=== PATIENT | female | born 1980 | race Caucasian/White ===

== ENCOUNTER 2016-12-31 14:29 | Emergency (ER) | payer MEDICARE, OTHER ==
[~2016-12-31] VITALS: Ht 172.7 cm; Wt 110.0 kg
[~2016-12-31 14:29] MED LIST: ATIV2INJ2 IM; BENZ1TAB PO; CLON.5 PO; DIPH50IN2 IM; HALO5P IM; IBUP800T23 PO; LITH300 PO; PALI156P IM; TRAZ150T75 PO; VITA400C70 PO
--- NOTE | 2016-12-31 14:51 | PD ---
HPI . confusion Chief Complaint: Psychiatric Symptoms Time Seen by Provider: 14:50 Travel History International Travel<30 days: No Contact w/Intl Traveler<30days: No Traveled to known affect area: No History of Present Illness HPI 36-year-old female with past medical history of schizophrenia per [facility]. She was apparently seen by a psychiatrist while there and noted to have incoherent speech, delusional behaviors and visual hallucinations. She had very disorganized thought process. Upon questioning patient tells me that she hears about 6 people talking to her in her head. She tells me that she is . She cannot focus and is constantly gazing off talking to people I cannot see. At the time of examination patient denies any fever, chills, chest pain, shortness of breath, nausea, vomiting or abdominal pain. She is a very unreliable historian. 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 PFSH Past Medical History Depression: Yes Cancer: No Cardiovascular Problems: No Diminished Hearing: No Endocrine: No Gastrointestinal Disorders: No Genitourinary: No Immune Disorder: No Implanted Vascular Access Dvce: No Musculoskeletal: Yes (SURGICAL REPAIR OF R LEG AND BILAT ANKLES) Neurologic: No Psychiatric: Yes Reproductive: No Respiratory: No Schizophrenia: Yes Past Surgical History Abdominal Surgery: No Cardiac Surgery: No Section: Yes Ear Surgery: No Endocrine Surgery: No Eye Surgery: No Genitourinary Surgery: No Gynecologic Surgery: Yes () Neurologic Surgery: No Oral Surgery: No Thoracic Surgery: No Other Surgery: Yes Social History Alcohol Use: Yes (on occasion) Tobacco Use: Yes (1/2 ppd) Substance Use: No (DENIES) Allergies-Medications (Allergen,Severity, Reaction): Coded Allergies: Penicillin (Verified Allergy, Severe, 12/31/16) Reported Meds & Prescriptions Reported Meds & Active Scripts Active Reported Ativan (Lorazepam) 2 Mg/Ml Inj 2 Mg IM BID PRN GIVEN WITH HALDOL 5MG AND BENADRYL 50MG Benadryl (Diphenhydramine HCl) 50 Mg/Ml Inj 50 Mg IM BID PRN GIVEN WITH HALDOL 5MG AND ATIVAN 2MG Haldol (Haloperidol Lactate) 5 Mg/Ml Inj 5 Mg IM BID PRN GIVEN WITH BENADRYL 50MG AND ATIVAN 2MG Ibuprofen 800 Mg Tab 800 Mg PO Q6H PRN Klonopin (Clonazepam) 0.5 Mg Tab 0.25 Mg PO DAILY 1 Days DUE TO BE GIVEN AT 9AM ON 05/14/2014 Klonopin (Clonazepam) 0.5 Mg Tab 0.25 Mg PO BID 2 Days Vitamin E-400 (Vitamin E) 400 Unit Cap 400 Unit PO DAILY@0600 7 Days Cogentin (Benztropine Mesylate) 1 Mg Tab 1 Mg PO BID Potter Carbonate Er (Potter Carbonate) 300 Mg Tab 600 Mg PO Q12 Trazodone Hcl (Trazodone HCl) 150 Mg Tab 150 Mg PO HS Invega Sustenna (Paliperidone Palmitate) 156 Mg/Ml Inj 156 Mg IM Q28D *FOR INTRAMUSCULAR USE ONLY* Review of Systems General / Constitutional: No: Fever Eyes: No: Visual changes HENT: No: Headaches Cardiovascular: No: Chest Pain or Discomfort Respiratory: No: Shortness of Breath Gastrointestinal: No: Abdominal Pain Genitourinary: No: Dysuria Musculoskeletal: No: Pain Skin: No Rash Neurologic: No: Weakness Psychiatric: No: Depression Endocrine: No: Polydipsia Hematologic/Lymphatic: No: Easy Bruising Physical Exam Narrative GENERAL: AAO x 1, no acute distress, Well-nourished, well-developed patient. SKIN: Warm and dry. No visible rashes or bruising. HEAD: Normocephalic and atraumatic. EYES: No scleral icterus. No injection or drainage. EOM intact, PERRLA ENT: No nasal drainage noted. Mucous membranes pink. Airway patent. NECK: Supple, trachea midline. No JVD. CARDIOVASCULAR: Regular rate and rhythm without murmurs, gallops, or rubs. RESPIRATORY: Breath sounds equal bilaterally. No accessory muscle use. No rhonchi or rales. GASTROINTESTINAL: Abdomen soft, non-tender, nondistended. EXTREMITIES: No cyanosis or edema. BACK: Nontender without obvious deformity. No CVA tenderness. PSYCH: AAO x 1, confused and flat affect Data Data Last Documented VS Vital Signs Date Time Temp Pulse Resp B/P Pulse Ox O2 Delivery O2 Flow Rate FiO2 12/31/16 14:56 97.8 12/31/16 14:55 81 20 113/57 99 Orders Complete Blood Count With Diff (12/31/16 15:04) Comprehensive Metabolic Panel (12/31/16 15:04) Ed Urine Pregnancytest Poc (12/31/16 15:04) Psych Screen (12/31/16 15:04) Drug Screen, Random Urine (12/31/16 15:04) Urinalysis - C+S If Indicated (12/31/16 15:04) Ct Brain W/O Iv Contrast(Rout) (12/31/16 ) Labs Laboratory Tests Test 12/31/16 12/31/16 15:30 16:15 White Blood Count 7.5 TH/MM3 Red Blood Count 3.98 MIL/MM3 Hemoglobin 12.1 GM/DL Hematocrit 35.2 % Mean Corpuscular Volume 88.4 FL Mean Corpuscular Hemoglobin 30.4 PG Mean Corpuscular Hemoglobin 34.3 % Concent Red Cell Distribution Width 13.8 % Platelet Count 265 TH/MM3 Mean Platelet Volume 9.0 FL Neutrophils (%) (Auto) 60.0 % Lymphocytes (%) (Auto) 27.7 % Monocytes (%) (Auto) 9.2 % Eosinophils (%) (Auto) 2.7 % Basophils (%) (Auto) 0.4 % Neutrophils # (Auto) 4.5 TH/MM3 Lymphocytes # (Auto) 2.1 TH/MM3 Monocytes # (Auto) 0.7 TH/MM3 Eosinophils # (Auto) 0.2 TH/MM3 Basophils # (Auto) 0.0 TH/MM3 CBC Comment DIFF FINAL Differential Comment Sodium Level 139 MEQ/L Potassium Level 3.6 MEQ/L Chloride Level 102 MEQ/L Carbon Dioxide Level 26.0 MEQ/L Anion Gap 11 MEQ/L Blood Urea Nitrogen 10 MG/DL Creatinine 0.67 MG/DL Estimat Glomerular Filtration 99 ML/MIN Rate Random Glucose 77 MG/DL Calcium Level 9.4 MG/DL Total Bilirubin 0.5 MG/DL Aspartate Amino Transf 37 U/L (AST/SGOT) Alanine Aminotransferase 44 U/L (ALT/SGPT) Alkaline Phosphatase 78 U/L Total Protein 7.4 GM/DL Albumin 3.7 GM/DL Urine Color YELLOW Urine Turbidity HAZY Urine pH 5.0 Urine Specific [place] 1.009 Urine Protein NEG mg/dL Urine Glucose (UA) NEG mg/dL Urine Ketones 10 mg/dL Urine Occult Blood NEG Urine Nitrite NEG Urine Bilirubin NEG Urine Urobilinogen LESS THAN 2.0 MG/DL Urine Leukocyte Esterase NEG Urine WBC 1 /hpf Urine Squamous Epithelial <1 /hpf Cells Urine Amorphous Sediment RARE Urine Mucus FEW /lpf Microscopic Urinalysis Comment CULT NOT INDICATED Urine Opiates Screen NEG Urine Barbiturates Screen NEG Urine Amphetamines Screen NEG Urine Benzodiazepines Screen POS Urine Cocaine Screen NEG Urine Cannabinoids Screen NEG MDM Medical Decision Making Medical Screen Exam Complete: Yes Emergency Medical Condition: Yes Medical Record Reviewed: Yes Differential Diagnosis acute psychosis, less likely Warneke's encephalopathy, less likely brain lesion Narrative Course 36-year-old female with past medical history of schizophrenia per [facility]. She was apparently seen by a psychiatrist while there and noted to have incoherent speech, delusional behaviors and visual hallucinations. She had very disorganized thought process. Upon questioning patient tells me that she hears about 6 people talking to her in her head. She tells me that she is . She cannot focus and is constantly gazing off talking to people I cannot see. At the time of examination patient denies any fever, chills, chest pain, shortness of breath, nausea, vomiting or abdominal pain. She is a very unreliable historian. 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 Patient seen and examined. Case discussed with Dr. Grullon. Labs, UA and CT of the brain ordered. If normal, we will proceed with medical clearance and patient will report to psychiatry services. CT of the brain normal. CBC and CMP unremarkable. Tox screen positive for benzo. UA no acute infection. Medically cleared for psych workup/treatment. Diagnosis Primary Impression: Visual hallucination Additional Impression: Hx of schizophrenia Condition: Stable Marissa Vo Dec 31, 2016 14:51
[2016-12-31 14:55] VITALS: BP 113/57; PULSE 81; RESP 20; O2SAT 99
[2016-12-31 14:56] VITALS: TEMP 97.8
[2016-12-31 16:13] LABS: AUTOMATED NEUTROPHIL # 4.5 TH/MM3 (1.8-7.7); BASOPHIL % 0.4 % (0.0-2.0); EOSINOPHIL # 0.2 TH/MM3 (0-0.4); EOSINOPHIL % 2.7 % (0.0-4.0); HEMATOCRIT 35.2 % (35.0-46.0); HEMO FLAGS DIFF FINAL; LYMPH % 27.7 % (9.0-44.0); LYMPHOCYTE # 2.1 TH/MM3 (1.0-4.8); MEAN CELL VOLUME 88.4 FL (80.0-100.0); MEAN CORPUSCULAR HEMOGLOBIN 30.4 PG (27.0-34.0); MEAN CORPUSCULAR HGB CONC 34.3 % (32.0-36.0); MONO % 9.2 % (0.0-8.0); PLATELET COUNT 265 TH/MM3 (150-450); RED BLOOD COUNT 3.98 MIL/MM3 (4.00-5.30); RED CELL DISTRIBUTION WIDTH 13.8 % (11.6-17.2); WHITE BLOOD COUNT 7.5 TH/MM3 (4.0-11.0)
--- NOTE | 2016-12-31 16:33 | RADRPT ---
EXAM DATE/TIME: 12/31/2016 16:25 [facility] COMPARISON: No previous studies available for comparison. INDICATIONS : Altered mental status. RADIATION DOSE: 35.73 CTDIvol (mGy) MEDICAL HISTORY : None SURGICAL HISTORY : None. ENCOUNTER: Initial ACUITY: 1 day PAIN SCALE: 0/10 LOCATION: cranial TECHNIQUE: Multiple contiguous axial images were obtained of the head. Using automated exposure control and adj ustment of the mA and/or kV according to patient size, radiation dose was kept as low as reasonably a chievable to obtain optimal diagnostic quality images. FINDINGS: CEREBRUM: The ventricles are normal for age. No evidence of midline shift, mass lesion, hemorrhage or acute in farction. No extra-axial fluid collections are seen. POSTERIOR FOSSA: The cerebellum and brainstem are intact. The 4th ventricle is midline. The cerebellopontine angle i s unremarkable. EXTRACRANIAL: The visualized portion of the orbits is intact. SKULL: The calvaria is intact. No evidence of skull fracture. CONCLUSION: Normal examination. Sourav Ornelas Jr., MD on December 31, 2016 at 16:31 Board Certified Radiologist. This report was verified electronically.
[2016-12-31 16:36] LABS: ALT (GPT) 44 U/L (10-53); ANION GAP 11 MEQ/L (5-15); BLOOD UREA NITROGEN 10 MG/DL (7-18); CHLORIDE 102 MEQ/L (98-107); GLOMERULAR FILTRATION RATE 99 ML/MIN (>89); POTASSIUM 3.6 MEQ/L (3.5-5.1); SODIUM (NA) 139 MEQ/L (136-145)
[2016-12-31 16:38] LABS: ALKALINE PHOSPHATASE 78 U/L (45-117); AST (GOT) 37 U/L (15-37); TOTAL BILIRUBIN ADULT 0.5 MG/DL (0.2-1.0)
[2016-12-31 16:52] LABS: BLOOD, URINE NEG (NEG); COMMENT (UR) CULT NOT INDICATED; CULTURE IF INDICATED CULT NOT INDICATED; GLUCOSE,URINE NEG (NEG); KETONE, URINE 10 mg/dL (NEG); MUCUS URINE FEW /lpf (OCC); NITRITE,URINE NEG (NEG); SQUAMOUS EPITHELIAL CELL URINE <1 /hpf (0-5); URINE COLOR YELLOW (YELLW/STRAW)
[2016-12-31 16:53] LABS: AMPHETAMINE, URINE NEG (NEG); BARBITURATES, URINE NEG (NEG); COCAINE, URINE NEG (NEG)
[2016-12-31] MEDS ORDERED: DIAZ5 PO (18:04)
[2016-12-31] MEDS ORDERED: THIA100T PO (18:04)
[2016-12-31 20:18] VITALS: BP 133/61; PULSE 83; RESP 18; TEMP 98.2; O2SAT 97
[2016-12-31] MEDS ORDERED: LORazepam 2 MG/ML VIAL IV PUSH ONE (22:00)
[2016-12-31] MEDS ORDERED: OLANZapine IM 10 MG VIAL IM ONE (22:00)
[2016-12-31] MEDS ORDERED: diphenhydrAMINE HCL 50 MG/ML VIAL IV PUSH ONE (22:00)
[2016-12-31 22:10] VITALS: BP 156/69; PULSE 82; RESP 18; TEMP 97.5; O2SAT 100
[2017-01-01 06:42] VITALS: BP 175/77; PULSE 78; RESP 18; O2SAT 98
[2017-01-01 08:55] VITALS: BP 121/64; PULSE 89; RESP 18; O2SAT 97
--- NOTE | 2017-01-01 09:14 | PD ---
History of Present Illness Chief Complaint: Psychiatric Symptoms Time Seen by Provider: 09:00 Travel History International Travel<30 Days: No Contact w/Intl Traveler<30days: No Known affected area: No Legal Status Legal Status: Lam Act Lam Act Signed By: SUDHIR JENKINS LCSW, MA; GALINDO JACOBSEN, [address] [place] [address] History of Present Illness: History of Present Illness HPI 36-year-old female with past medical history of schizophrenia per records here [facility]. As per documentation the patient was seen at the [facility] by Dr. Feng who [place] [facility] [place] and [place]. The patient was noted to have incoherent speech, delusional behaviors and visual hallucinations. She had very disorganized thought process. Here in the ED " Upon questioning patient tells me that she hears about 6 people talking to her in her head. She tells me that she is . She cannot focus and is constantly gazing off talking to people I cannot see. She is a very unreliable historian. 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 As per nursing report she has been awake most of the night walking around and talking to herself. She received ETO and slept for approximately 2 hours. This morning she is awake, alert. She does not engage. When I ask her name she begins to giggle and puts her fingers in her mouth and makes some faces. She then proceeds to talk to herself and begins to organize her sheets. I am unable to obtain any other clinical information at this time. I will order another ETO at this time due to continued behaviors indicating acute psychosis. I attempted to contact ELIEL listed on EMR Myriam at [phone]. [place] [facility] [place] As per EMR this patient was [place] [facility] [place] and treated for schizophrenia. PFSH Past Medical History Depression: Yes Cancer: No Cardiovascular Problems: No Diminished Hearing: No Endocrine: No Gastrointestinal Disorders: No Genitourinary: No Immune Disorder: No Implanted Vascular Access Dvce: No Musculoskeletal: Yes (SURGICAL REPAIR OF R LEG AND BILAT ANKLES) Neurologic: No Psychiatric: Yes Reproductive: No Respiratory: No Immunizations Current: No Schizophrenia: Yes Tetanus Vaccination: Unknown Influenza Vaccination: No ?: Not Past Surgical History Abdominal Surgery: No Cardiac Surgery: No Section: Yes Ear Surgery: No Endocrine Surgery: No Eye Surgery: No Genitourinary Surgery: No Gynecologic Surgery: Yes () Neurologic Surgery: No Oral Surgery: No Thoracic Surgery: No Other Surgery: Yes Psychiatric History Psychiatric History Hx Psychiatric Treatment: HX OF TREATMENT FOR SCHIZOPHRENIA AND DEPRESSION [place] of [place]: [place] [place] [facility] Social History Hx Alcohol Use: Yes (on occasion) Hx Tobacco Use: No (quit a year ago ) Hx Substance Use: No (unknown) Hx of Substance Use Treatment: No Family Psychiatric History Unknown Allergies-Medications (Allergen,Severity, Reaction): Coded Allergies: Penicillin (Verified Allergy, Severe, 12/31/16) Reported Meds & Prescriptions Reported Meds & Active Scripts Active Reported Valium (Diazepam) 5 Mg Tab 5 Mg PO DAILY Thiamine (Thiamine HCl) 100 Mg Tab 100 Mg PO DAILY Review of Systems ROS Limitations: Clinical Condition Exam Exam Limitations: Clinical Condition Alert: Yes Mood: Other (restless) Affect: Labile, Other (innapropriatte) Eye Contact: None Memory Intact: Comment (unable to test) Hallucinations: Auditory (observed talking to other people in her room) Delusions: No Suicidal: Ideation (unamble to assess) Homicidal: Ideation (unable to determine) Insight/Judgement Fair. Fair [facility] Medical Decision Making Medical Record Reviewed: Yes Assessment/Plan 36 year old female who is on A BA for psychosis . Patient requires inpatient treatment at this time . Due to no bed availability [place] [facility] at this time the patient will be staffed with area facilities for treatment. Orders Complete Blood Count With Diff (12/31/16 15:04) Comprehensive Metabolic Panel (12/31/16 15:04) Ed Urine Pregnancytest Poc (12/31/16 15:04) Psych Screen (12/31/16 15:04) Drug Screen, Random Urine (12/31/16 15:04) Urinalysis - C+S If Indicated (12/31/16 15:04) Ct Brain W/O Iv Contrast(Rout) (12/31/16 ) Olanzapine Inj (Zyprexa Inj) (12/31/16 22:00) Diphenhydramine Inj (Benadryl Inj) (12/31/16 22:00) Lorazepam Inj (Ativan Inj) (12/31/16 22:00) Diet Regular Basic (01/01/17 Breakfast) Diet Regular Basic (01/01/17 Lunch) Olanzapine Inj (Zyprexa Inj) (01/01/17 09:15) Diphenhydramine Inj (Benadryl Inj) (01/01/17 09:15) Results Vital Signs Date Time Temp Pulse Resp B/P Pulse Ox O2 Delivery O2 Flow Rate FiO2 01/01/17 08:55 89 18 121/64 97 Room Air 01/01/17 06:42 78 18 175/77 98 12/31/16 22:10 97.5 82 18 156/69 100 Room Air 12/31/16 20:18 98.2 83 18 133/61 97 Room Air 12/31/16 14:56 97.8 12/31/16 14:55 81 20 113/57 99 Laboratory Tests Test 12/31/16 12/31/16 15:30 16:15 White Blood Count 7.5 Red Blood Count 3.98 Hemoglobin 12.1 Hematocrit 35.2 Mean Corpuscular Volume 88.4 Mean Corpuscular Hemoglobin 30.4 Mean Corpuscular Hemoglobin 34.3 Concent Red Cell Distribution Width 13.8 Platelet Count 265 Mean Platelet Volume 9.0 Neutrophils (%) (Auto) 60.0 Lymphocytes (%) (Auto) 27.7 Monocytes (%) (Auto) 9.2 Eosinophils (%) (Auto) 2.7 Basophils (%) (Auto) 0.4 Neutrophils # (Auto) 4.5 Lymphocytes # (Auto) 2.1 Monocytes # (Auto) 0.7 Eosinophils # (Auto) 0.2 Basophils # (Auto) 0.0 CBC Comment DIFF FINAL Differential Comment Sodium Level 139 Potassium Level 3.6 Chloride Level 102 Carbon Dioxide Level 26.0 Anion Gap 11 Blood Urea Nitrogen 10 Creatinine 0.67 Estimat Glomerular Filtration 99 Rate Random Glucose 77 Calcium Level 9.4 Total Bilirubin 0.5 Aspartate Amino Transf 37 (AST/SGOT) Alanine Aminotransferase 44 (ALT/SGPT) Alkaline Phosphatase 78 Total Protein 7.4 Albumin 3.7 Urine Color YELLOW Urine Turbidity HAZY Urine pH 5.0 Urine Specific [place] 1.009 Urine Protein NEG Urine Glucose (UA) NEG Urine Ketones 10 Urine Occult Blood NEG Urine Nitrite NEG Urine Bilirubin NEG Urine Urobilinogen LESS THAN 2.0 Urine Leukocyte Esterase NEG Urine WBC 1 Urine Squamous Epithelial <1 Cells Urine Amorphous Sediment RARE Urine Mucus FEW Microscopic Urinalysis Comment CULT NOT INDICATED Urine Opiates Screen NEG Urine Barbiturates Screen NEG Urine Amphetamines Screen NEG Urine Benzodiazepines Screen POS Urine Cocaine Screen NEG Urine Cannabinoids Screen NEG Diagnosis Primary Impression: schizophrenia Condition: Stable Aliyah Freeman Jan 01, 2017 09:14
[2017-01-01] MEDS ORDERED: OLANZapine IM 10 MG VIAL IM ONE (09:15)
[2017-01-01] MEDS ORDERED: diphenhydrAMINE HCL 50 MG/ML VIAL IM PRN (09:15)
[2017-01-01 11:00] VITALS: BP 133/70; PULSE 80; RESP 18
[2017-01-01] MEDS ORDERED: LORazepam 2 MG/ML VIAL ONE (11:25)
[2017-01-01] MEDS ORDERED: LORazepam 2 MG/ML VIAL IM ONE (11:45)
== END 2017-01-01 13:08 ==
LOC: NEPC 14:29 → NEPJ 01-01 13:08
DX: R44.1 Visual hallucinations (principal); F20.9 Schizophrenia, unspecified; F17.210 Nicotine dependence, cigarettes, uncomplicated
CPT/HCPCS: 70450; 80053; 80307; 81001; 84703; 85025; 96372; 96374; 96375; 96376; 99285; J1200; J2060

== ENCOUNTER 2017-11-30 14:27 | Inpatient (IN) | payer MEDICARE, OTHER ==
[~2017-11-30] VITALS: Ht 167.6 cm; Wt 93.4 kg
[~2017-11-30 14:27] MED LIST changes: -ATIV2INJ2 IM; -BENZ1TAB PO; -CLON.5 PO; +DIAZ5 PO; -DIPH50IN2 IM; -HALO5P IM; -IBUP800T23 PO; -LITH300 PO; -PALI156P IM; +THIA100T PO; -TRAZ150T75 PO; -VITA400C70 PO
[2017-11-30 14:57] VITALS: BP 100/59; TEMP 98.7; O2SAT 97
--- NOTE | 2017-11-30 15:36 | PD ---
HPI Chief Complaint: Psychiatric Symptoms Time Seen by Provider: 15:15 Travel History International Travel<30 days: No Contact w/Intl Traveler<30days: No Traveled to known affect area: No History of Present Illness HPI This is a 37-year-old female who was different hernia who presents to the emergency Department under a Lam act because she has worsening schizophrenia. She states that a long-term and the long-term has found her sleepless, poorly responsive and she took her clothes off in the parking lot there. She's been difficult to direct and difficult to understand. Her symptoms of been constant, severe, and not improving. Patient was transported here for psychiatric evaluation. PFSH Past Medical History Depression: Yes Cancer: No Cardiovascular Problems: No Diminished Hearing: No Endocrine: No Gastrointestinal Disorders: No Genitourinary: No Immune Disorder: No Implanted Vascular Access Dvce: No Musculoskeletal: Yes (SURGICAL REPAIR OF R LEG AND BILAT ANKLES) Neurologic: No Psychiatric: Yes Reproductive: No Respiratory: No Immunizations Current: No Schizophrenia: Yes ?: Unknown Past Surgical History Abdominal Surgery: No Cardiac Surgery: No Section: Yes Ear Surgery: No Endocrine Surgery: No Eye Surgery: No Genitourinary Surgery: No Gynecologic Surgery: Yes () Neurologic Surgery: No Oral Surgery: No Thoracic Surgery: No Other Surgery: Yes Social History Alcohol Use: Yes (on occasion) Tobacco Use: No (quit a year ago ) Substance Use: No (unknown) Allergies-Medications (Allergen,Severity, Reaction): Coded Allergies: penicillin G (Unverified Allergy, Severe, 06/22/17) Reported Meds & Prescriptions Reported Meds & Active Scripts Active Reported Valium (Diazepam) 5 Mg Tab 5 Mg PO DAILY Thiamine (Thiamine HCl) 100 Mg Tab 100 Mg PO DAILY Review of Systems Except as stated in HPI: all other systems reviewed are Neg Physical Exam Narrative GENERAL:Well appearing, no acute distress SKIN: Focused skin assessment warm and dry. HEAD: Atraumatic. Normocephalic. EYES: Pupils equal and round. No injection or drainage. ENT: Moist mucous membranes NECK: Trachea midline. CARDIOVASCULAR: Regular rate and rhythm. No murmur appreciated. RESPIRATORY: Clear to auscultation. Breath sounds equal bilaterally. GASTROINTESTINAL: Abdomen soft, non-tender, nondistended. MUSCULOSKELETAL: No obvious deformities. NEUROLOGICAL: Awake and alert. No obvious cranial nerve deficits. Moving all extremities. PSYCHIATRIC: Poor insight and judgment, mumbling, somewhat tangential Data Data Last Documented VS Vital Signs Date Time Temp Pulse Resp B/P (MAP) Pulse Ox O2 Delivery O2 Flow Rate FiO2 11/30/17 14:57 98.7 82 18 100/59 (73) 97 Orders Orders Complete Blood Count With Diff (11/30/17 15:15) Comprehensive Metabolic Panel (11/30/17 15:15) Thyroid Stimulating Hormone (11/30/17 15:15) Psych Screen (11/30/17 15:15) Drug Screen, Random Urine (11/30/17 15:15) Alcohol (Ethanol) (11/30/17 15:15) ^ Sitter (11/30/17 15:26) Diet Regular Basic (11/30/17 Dinner) Labs Laboratory Tests Test 11/30/17 15:42 11/30/17 15:45 Urine Opiates Screen NEG Urine Barbiturates Screen NEG Urine Amphetamines Screen NEG Urine Benzodiazepines Screen NEG Urine Cocaine Screen NEG Urine Cannabinoids Screen NEG White Blood Count 7.4 TH/MM3 Red Blood Count 4.18 MIL/MM3 Hemoglobin 13.1 GM/DL Hematocrit 38.4 % Mean Corpuscular Volume 91.8 FL Mean Corpuscular Hemoglobin 31.4 PG Mean Corpuscular Hemoglobin Concent 34.2 % Red Cell Distribution Width 13.4 % Platelet Count 217 TH/MM3 Mean Platelet Volume 8.6 FL Neutrophils (%) (Auto) 90.3 % Lymphocytes (%) (Auto) 7.2 % Monocytes (%) (Auto) 2.3 % Eosinophils (%) (Auto) 0.1 % Basophils (%) (Auto) 0.1 % Neutrophils # (Auto) 6.7 TH/MM3 Lymphocytes # (Auto) 0.5 TH/MM3 Monocytes # (Auto) 0.2 TH/MM3 Eosinophils # (Auto) 0.0 TH/MM3 Basophils # (Auto) 0.0 TH/MM3 CBC Comment DIFF FINAL Differential Comment Blood Urea Nitrogen 17 MG/DL Creatinine 0.63 MG/DL Random Glucose 108 MG/DL Total Protein 7.4 GM/DL Albumin 3.6 GM/DL Calcium Level 8.3 MG/DL Alkaline Phosphatase 67 U/L Aspartate Amino Transf (AST/SGOT) 14 U/L Alanine Aminotransferase (ALT/SGPT) 20 U/L Total Bilirubin 0.3 MG/DL Sodium Level 140 MEQ/L Potassium Level 4.2 MEQ/L Chloride Level 109 MEQ/L Carbon Dioxide Level 23.7 MEQ/L Anion Gap 7 MEQ/L Estimat Glomerular Filtration Rate 105 ML/MIN Thyroid Stimulating Hormone 3rd Gen 0.459 uIU/ML Ethyl Alcohol Level LESS THAN 3 MG/DL MDM Medical Decision Making Medical Screen Exam Complete: Yes Emergency Medical Condition: Yes Interpretation(s) No leukocytosis Electrolytes are reassuring TSH is normal Drug screen is negative Alcohols negative Differential Diagnosis Schizophrenia, depression, bipolar disorder, drug intoxication, alcohol intoxication Narrative Course This is a 37-year-old female who has a history of schizophrenia who appears decompensated and was brought in under a Lam act by her long-term. She doesn 't provide much meaningful history and is wandering around the room pacing when I evaluate her. Labs are reassuring. Patient can be evaluated by psychiatry and may require admission or medication titration. Diagnosis Primary Impression: Schizophrenia Qualified Codes: F20.9 - Schizophrenia, unspecified Peggy Teran MD Nov 30, 2017 15:36
[2017-11-30 16:08] LABS: AUTOMATED NEUTROPHIL # 6.7 TH/MM3 (1.8-7.7); BASOPHIL % 0.1 % (0.0-2.0); EOSINOPHIL % 0.1 % (0.0-4.0); HEMATOCRIT 38.4 % (35.0-46.0); HEMOGLOBIN 13.1 GM/DL (11.6-15.3); LYMPH % 7.2 % (9.0-44.0); LYMPHOCYTE # 0.5 TH/MM3 (1.0-4.8); MEAN CELL VOLUME 91.8 FL (80.0-100.0); MEAN CORPUSCULAR HEMOGLOBIN 31.4 PG (27.0-34.0); MEAN CORPUSCULAR HGB CONC 34.2 % (32.0-36.0); MEAN PLATELET VOLUME 8.6 FL (7.0-11.0); MONO % 2.3 % (0.0-8.0); MONOCYTE # 0.2 TH/MM3 (0-0.9); NEUT % 90.3 % (16.0-70.0); PLATELET COUNT 217 TH/MM3 (150-450); RED BLOOD COUNT 4.18 MIL/MM3 (4.00-5.30); RED CELL DISTRIBUTION WIDTH 13.4 % (11.6-17.2); WHITE BLOOD COUNT 7.4 TH/MM3 (4.0-11.0)
[2017-11-30 16:28] LABS: ALBUMIN 3.6 GM/DL (3.4-5.0); ALT (GPT) 20 U/L (10-53); AST (GOT) 14 U/L (15-37); BICARBONATE 23.7 MEQ/L (21.0-32.0); BLOOD UREA NITROGEN 17 MG/DL (7-18); CALCIUM 8.3 MG/DL (8.5-10.1); CHLORIDE 109 MEQ/L (98-107); CREATININE 0.63 MG/DL (0.50-1.00); GLOMERULAR FILTRATION RATE 105 ML/MIN (>89); GLUCOSE,RANDOM 108 MG/DL (74-106); SODIUM (NA) 140 MEQ/L (136-145)
[2017-11-30 16:38] LABS: ALKALINE PHOSPHATASE 67 U/L (45-117); TOTAL BILIRUBIN ADULT 0.3 MG/DL (0.2-1.0); TOTAL PROTEIN 7.4 GM/DL (6.4-8.2)
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
[2017-11-30 18:27] VITALS: BP 129/58; PULSE 71; RESP 16; TEMP 98.7; O2SAT 98
[2017-11-30] MEDS ORDERED: ALUMINUM/MAGNESIUM/SIMETH 30 ML CUP PO PRN (18:45)
[2017-11-30] MEDS ORDERED: MAGNESIUM HYDROXIDE SUSP 30 ML CUP PO PRN (18:45)
[2017-11-30] MEDS ORDERED: TEMA30CA PO (20:30)
[2017-11-30] MEDS ORDERED: TYLETAB34 PO (20:30)
[2017-11-30] MEDS ORDERED: ZITHTAB PO (20:30)
[2017-11-30] MEDS ORDERED: IBUP1TAB7 PO (20:30)
[2017-11-30] MEDS ORDERED: NAPR500T2 PO (20:30)
[2017-11-30] MEDS ORDERED: OLAN20TA PO (20:30)
[2017-11-30] MEDS ORDERED: VENTAER INH (20:30)
[2017-11-30] MEDS ORDERED: TRAM50TA PO (20:30)
[2017-11-30] MEDS ORDERED: QUET1TAB8 PO (20:30)
[2017-11-30] MEDS ORDERED: TRAZ50TA12 PO (20:30)
[2017-11-30] MEDS ORDERED: LORA1TAB12 PO (20:30)
[2017-11-30] MEDS ORDERED: BENZ0.5T PO (20:30)
[2017-11-30] MEDS ORDERED: CHLO200T5 PO (20:30)
[2017-11-30] MEDS ORDERED: PRED20 PO (20:30)
[2017-11-30] MEDS ORDERED: DIVA500T PO (20:30)
[2017-11-30] MEDS ORDERED: GUAN1TAB PO (20:30)
[2017-11-30] MEDS ORDERED: ABIL15TA3 PO (20:30)
[2017-11-30] MEDS ORDERED: traZODone HCL 50 MG TAB PO SCH (21:00)
[2017-11-30] MEDS ORDERED: ALBUTEROL SULFATE 90 MCG/ACT HFA 8 GM INHALER INH PRN (21:00)
[2017-11-30 21:11] VITALS: BP 130/75; PULSE 78; RESP 18; TEMP 97.1; O2SAT 100
[2017-11-30] MEDS: NAPROXEN 500 MG TAB PO SCH (22:17)
[2017-11-30] MEDS: QUEtiapine FUMARATE 100 MG TAB PO SCH (22:18)
[2017-11-30] MEDS: BENZTROPINE MESYLATE 1 MG TAB PO SCH (22:18)
[2017-11-30] MEDS: DIVALPROEX DR 500 MG TABEC PO SCH (22:18)
[2017-12-01 05:29] VITALS: BP 106/70; PULSE 77; RESP 18; TEMP 98.5; O2SAT 99
[2017-12-01] MEDS: DIVALPROEX DR 500 MG TABEC PO SCH (08:00)
[2017-12-01] MEDS: BENZTROPINE MESYLATE 1 MG TAB PO SCH (08:00)
[2017-12-01] MEDS: QUEtiapine FUMARATE 100 MG TAB PO SCH (08:00)
[2017-12-01 08:35] LABS: ALBUMIN 3.3 GM/DL (3.4-5.0); ALT (GPT) 19 U/L (10-53); AST (GOT) 11 U/L (15-37); BICARBONATE 26.1 MEQ/L (21.0-32.0); BLOOD UREA NITROGEN 18 MG/DL (7-18); CALCIUM 8.2 MG/DL (8.5-10.1); CHLORIDE 105 MEQ/L (98-107); CHOLESTEROL 114 MG/DL (120-200); CREATININE 0.61 MG/DL (0.50-1.00); GLOMERULAR FILTRATION RATE 109 ML/MIN (>89); GLUCOSE,RANDOM 76 MG/DL (74-106); SODIUM (NA) 137 MEQ/L (136-145); TRIGLYCERIDES 50 MG/DL (42-150)
[2017-12-01 08:37] LABS: ALKALINE PHOSPHATASE 70 U/L (45-117); CHOLESTEROL/ HDL RATIO 2.41 RATIO; HDL CHOLESTEROL 47.3 MG/DL (40.0-60.0); LDL CHOLESTEROL 57 MG/DL (0-99); TOTAL BILIRUBIN ADULT 0.2 MG/DL (0.2-1.0); TOTAL PROTEIN 6.8 GM/DL (6.4-8.2)
[2017-12-01] MEDS ORDERED: guanFACINE HCL 1 MG TAB PO SCH (09:00)
[2017-12-01] MEDS: NAPROXEN 500 MG TAB PO SCH ×2 (10:18→20:16)
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
[2017-12-01] MEDS ORDERED: ALBUTEROL SULFATE 90 MCG/ACT HFA 8 GM INHALER INH PRN (13:45)
[2017-12-01] MEDS ORDERED: BENZTROPINE MESYLATE 2 MG/2 ML VIAL IM PRN (13:45)
[2017-12-01] MEDS ORDERED: LORazepam 2 MG/ML VIAL IM PRN (13:45)
[2017-12-01] MEDS ORDERED: BENZTROPINE MESYLATE 1 MG TAB PO PRN (13:45)
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
[2017-12-01 16:47] LABS: HEMOGLOBIN A1C 5.3 % (4.3-6.0)
[2017-12-01 17:15] VITALS: BP 105/55; PULSE 79; RESP 18; TEMP 98.2; O2SAT 98
[2017-12-01] MEDS: risperiDONE ODT 1 MG TAB PO SCH (20:16)
[2017-12-01] MEDS: LORazepam 1 MG TAB PO PRN (20:32)
--- NOTE | 2017-12-01 21:45 | RADRPT ---
EXAM DATE/TIME: 12/01/2017 21:25 [place] COMPARISON: No previous studies available for comparison. INDICATIONS : Shortness of breath, congestion, and cough. MEDICAL HISTORY : None. SURGICAL HISTORY : None. ENCOUNTER: Initial ACUITY: 2 days PAIN SCORE: 0/10 LOCATION: Bilateral chest FINDINGS: Trace atelectasis seen of the bases, mostly on the left. No pleural effusion or pneumothorax. Heart s ize within normal limits. CONCLUSION: Slight left base atelectasis. Chente Patel MD on December 01, 2017 at 21:42 Board Certified Radiologist. This report was verified electronically.
[2017-12-02 03:05] VITALS: TEMP 100.6
[2017-12-02] MEDS: ACETAMINOPHEN 325 MG TAB PO PRN (03:07)
[2017-12-02 04:12] VITALS: TEMP 98.5
[2017-12-02 06:05] VITALS: BP 125/62; PULSE 112; RESP 18; TEMP 100.5; O2SAT 97
[2017-12-02] MEDS: NAPROXEN 500 MG TAB PO SCH (08:00)
[2017-12-02] MEDS: risperiDONE ODT 1 MG TAB PO SCH (08:00)
[2017-12-02] MEDS: RESP: ALBUTEROL 2.5 MG/IPRATROPIUM 0.5 MG NEB (SCH) NEB ×3 (10:00→22:20)
--- NOTE | 2017-12-02 10:22 | EKG ---
Date Performed: 12/01/2017 Time Performed: 13:14:00 PTAGE: 37 years EKG: Sinus rhythm NONSPECIFIC T-WAVE ABNORMALITY BORDERLINE ECG NO PREVIOUS TRACING DOCTOR: Gilmer Estrada Interpretating Date/Time 12/02/2017 10:20:22
[2017-12-02 10:33] LABS: BILIRUBIN, URINE NEG (NEG); BLOOD, URINE MOD (NEG); GLUCOSE,URINE NEG (NEG); KETONE, URINE NEG (NEG); NITRITE,URINE NEG (NEG); SQUAMOUS EPITHELIAL CELL URINE <1 /hpf (0-5); URINE COLOR YELLOW (YELLW/STRAW); URINE LEUKOCYTE ESTERASE NEG (NEG)
--- NOTE | 2017-12-02 13:05 | HHI.PR ---
Subjective Remarks Patient seen today around noon. Says she is feeling well. Denies any chest pain or shortness of breath. Denies any pain. Objective Vital Signs Date Time Temp Pulse Resp B/P (MAP) Pulse Ox O2 Delivery O2 Flow Rate FiO2 12/02/17 06:05 100.5 112 18 125/62 (83) 97 12/02/17 04:12 98.5 12/02/17 03:05 100.6 12/01/17 17:15 98.2 79 18 105/55 (72) 98 Result Diagram: 11/30/17 1545 12/01/17 0730 Objective Remarks GENERAL: Sitting up at table eating lunch. She is alert. SKIN: Warm and dry. HEAD: Normocephalic. EYES: No scleral icterus. No injection or drainage. NECK: Supple, trachea midline. No JVD. No lymphadenopathy. Patient with raspy voice, however improved from yesterday. CARDIOVASCULAR: Regular rate and rhythm without murmurs, gallops, or rubs. RESPIRATORY: Breath sounds equal bilaterally. No accessory muscle use. GASTROINTESTINAL: Abdomen soft, non-tender, nondistended. MUSCULOSKELETAL: No cyanosis, or edema. BACK: Nontender without obvious deformity. No CVA tenderness. A/P Assessment and Plan //Recent diagnosis of bronchitis. -We will discontinue prednisone taper as this has likely worsened her psychosis. -We will order chest x-ray. -Will complete azithromycin 2 more days. Albuterol nebs as needed. QTC within normal limits. = Records have been requested from [facility]. -Would consider referral to ENT as outpatient after discharge. = Each raspy, however much less so today. Much more clear today. Still awaiting records from [facility]. Discussed with nurse. //Fever 100.6 overnight, 100.5 this morning. -Chest x-ray with atelectasis. Urinalysis without signs of infection. = Order influenza testing. Her analysis without signs of infection. Chest x- ray with atelectasis. = Order incentive spirometry and Acapella. Continue to monitor. //Urinalysis with innumerable RBCs. Patient is on her period. //Schizophrenia. As per primary service. Discharge Planning We'll continue to follow. Brandon Lauren MD Dec 02, 2017 13:05
--- NOTE | 2017-12-02 13:15 | HHI.PYPN ---
Subjective Chief Complaint: Psychosis Remarks Patient seen and examined with nurse. Chart reviewed. Case discussed with nursing staff who reports that the patient continues to express delusions of . She was incontinent of urine 3 overnight. She is noted to be somewhat needy and intrusive. Case discussed in treatment team. On my examination today, the patient is less irritable. She does display some affective lability; Depakote was discontinued by the hospitalist but after discussing with hospitalist this was in error, and I have resumed Depakote. She denies any paranoia against Anna today. Thought process is a little bit tangential in speech somewhat rambling. She does articulate a delusion of . Denies any AVH. Denies SI or HI. Denies side effects from medications. No physical complaints. Review of Systems ROS Limitations: Psychotic, Poor Historian Except as stated in HPI: all other systems reviewed are Neg Mental Status Examination Appearance: Disheveled Consciousness: Alert Orientation: Person, Place (at least) Motor Activity: Normal gait, Other (no motor abnormalities noted) Speech: Other (somewhat rambling but less raspy today) Language: Adequate Fund of Knowledge: Poor Attention and Concentration: Easily Distracted Memory: Impaired Mood: Anxious Affect: Irritable, Labile (mild) Thought Process & Associations: Tangential Thought Content: Delusional Hallucination Type: None Delusion Type: Paranoid Suicidal Ideation: No Suicidal Plan: No Suicidal Intention: No Homicidal Ideation: No Homicidal Plan: No Homicidal Intention: No Insight: Poor Judgment: Poor Results Labs Test 12/02/17 09:00 Urine Color YELLOW Urine Turbidity CLEAR Urine pH 7.0 Urine Specific [place] 1.010 Urine Protein NEG mg/dL Urine Glucose (UA) NEG mg/dL Urine Ketones NEG mg/dL Urine Occult Blood MOD Urine Nitrite NEG Urine Bilirubin NEG Urine Urobilinogen LESS THAN 2.0 MG/DL Urine Leukocyte Esterase NEG Urine RBC /hpf Urine WBC 1 /hpf Urine Squamous Epithelial Cells <1 /hpf Microscopic Urinalysis Comment CULT NOT INDICATED Labs reviewed. Urinalysis bland. Vitals/IOs Vital Signs Date Time Temp Pulse Resp B/P (MAP) Pulse Ox O2 Delivery O2 Flow Rate FiO2 12/02/17 06:05 100.5 112 18 125/62 (83) 97 11/30/17 18:27 Room Air Elevated temp noted. Assessment & Plan Problem List: (1) Schizoaffective disorder, bipolar type ICD Codes: F25.0 - Schizoaffective disorder, bipolar type Assessment & Plan Titrate Risperdal to 2mg BID to target psychosis. To consider further titration over weekend. Depakote 500mg BID; plan to check a level after weekend. Hospitalist input noted and appreciated. Monitor temps. Continue to monitor on inpatient unit. Continue other meds and care as ordered. Justification for Cont. Inpt. Med changes. Impairment in reality construction. Risk for decompensation in less restrictive environment. Discharge Planning Pending psychiatric stabilization. Plan to return to [facility] once stable. Request HC Surrog/Guard Advoc?: Yes Demarcus Allen MD Dec 02, 2017 13:15
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
--- NOTE | 2017-12-02 15:06 | PD.TTN ---
Patient Problems 1. Discharge planning 2. Medication compliance 3. Knowledge deficit 4. Lack of coping skills Progress Toward Goals Provider Present: Dr. Derek Allen Provider Input: Pt meets criteria. Doctor adjusting medications. Psychiatric Counselors Present: Power Sethi Jr., [facility] [[email or web address]] Psych Therapist Input: Counselor spoke to Joselyn Momin. Joselyn reports pt can return to their facility upon discharge. Power Sethi Jr, [employer]INE[employer] Dec 02, 2017 15:06
[2017-12-02] MEDS: AZITHROMYCIN 250 MG TAB PO SCH (18:01)
[2017-12-02 18:32] VITALS: BP 100/56; PULSE 83; RESP 18; TEMP 97.4; O2SAT 100
[2017-12-02] MEDS: DIVALPROEX DR 500 MG TABEC PO SCH (20:09)
[2017-12-02] MEDS: risperiDONE ODT 2 MG TAB PO SCH (20:09)
[2017-12-03] MEDS: ACETAMINOPHEN 325 MG TAB PO PRN (00:35)
[2017-12-03] MEDS: RESP: ALBUTEROL 2.5 MG/IPRATROPIUM 0.5 MG NEB (SCH) NEB ×4 (04:40→21:05)
[2017-12-03 06:15] VITALS: BP 114/56; PULSE 82; RESP 17; TEMP 98.9; O2SAT 96
[2017-12-03] MEDS: DIVALPROEX DR 500 MG TABEC PO SCH ×2 (07:58→21:41)
[2017-12-03] MEDS: AZITHROMYCIN 250 MG TAB PO SCH (07:58)
[2017-12-03] MEDS: risperiDONE ODT 2 MG TAB PO SCH ×2 (07:58→21:41)
[2017-12-03 10:11] LABS: AUTOMATED NEUTROPHIL # 2.3 TH/MM3 (1.8-7.7); BASOPHIL % 0.9 % (0.0-2.0); EOSINOPHIL # 0.1 TH/MM3 (0-0.4); EOSINOPHIL % 2.5 % (0.0-4.0); HEMATOCRIT 38.6 % (35.0-46.0); HEMOGLOBIN 13.1 GM/DL (11.6-15.3); LYMPH % 35.5 % (9.0-44.0); LYMPHOCYTE # 1.7 TH/MM3 (1.0-4.8); MEAN CORPUSCULAR HEMOGLOBIN 31.2 PG (27.0-34.0); MEAN CORPUSCULAR HGB CONC 33.9 % (32.0-36.0); MONO % 12.3 % (0.0-8.0); MONOCYTE # 0.6 TH/MM3 (0-0.9); NEUT % 48.8 % (16.0-70.0); PLATELET COUNT 178 TH/MM3 (150-450); RED BLOOD COUNT 4.19 MIL/MM3 (4.00-5.30); RED CELL DISTRIBUTION WIDTH 13.6 % (11.6-17.2); WHITE BLOOD COUNT 4.7 TH/MM3 (4.0-11.0)
[2017-12-03 10:35] LABS: BICARBONATE 24.8 MEQ/L (21.0-32.0); CALCIUM 8.9 MG/DL (8.5-10.1); CREATININE 0.72 MG/DL (0.50-1.00)
--- NOTE | 2017-12-03 12:11 | HHI.PYPN ---
Subjective Chief Complaint: Psychosis Remarks Pt seen and discussed with staff. She remains disorganized but thought process is clearing. She is no longer incontinent today and is less intrusive on unit. She is compliant with medications. She remains with delusions of pseudocyesis but these are less fixed. Mental Status Examination Appearance: Disheveled Consciousness: Alert Orientation: Person, Place (at least) Motor Activity: Normal gait, Other (no motor abnormalities noted) Speech: Other (somewhat rambling but less raspy today) Language: Adequate Fund of Knowledge: Poor Attention and Concentration: Easily Distracted Memory: Impaired Mood: Anxious Affect: Irritable, Labile (mild) Thought Process & Associations: Tangential Thought Content: Delusional Hallucination Type: None Delusion Type: Paranoid Suicidal Ideation: No Suicidal Plan: No Suicidal Intention: No Homicidal Ideation: No Homicidal Plan: No Homicidal Intention: No Insight: Poor Judgment: Poor Results Labs Test 12/03/17 09:40 White Blood Count 4.7 TH/MM3 Red Blood Count 4.19 MIL/MM3 Hemoglobin 13.1 GM/DL Hematocrit 38.6 % Mean Corpuscular Volume 92.0 FL Mean Corpuscular Hemoglobin 31.2 PG Mean Corpuscular Hemoglobin Concent 33.9 % Red Cell Distribution Width 13.6 % Platelet Count 178 TH/MM3 Mean Platelet Volume 9.0 FL Neutrophils (%) (Auto) 48.8 % Lymphocytes (%) (Auto) 35.5 % Monocytes (%) (Auto) 12.3 % Eosinophils (%) (Auto) 2.5 % Basophils (%) (Auto) 0.9 % Neutrophils # (Auto) 2.3 TH/MM3 Lymphocytes # (Auto) 1.7 TH/MM3 Monocytes # (Auto) 0.6 TH/MM3 Eosinophils # (Auto) 0.1 TH/MM3 Basophils # (Auto) 0.0 TH/MM3 CBC Comment DIFF FINAL Differential Comment Blood Urea Nitrogen 11 MG/DL Creatinine 0.72 MG/DL Random Glucose 111 MG/DL Calcium Level 8.9 MG/DL Sodium Level 138 MEQ/L Potassium Level 4.1 MEQ/L Chloride Level 105 MEQ/L Carbon Dioxide Level 24.8 MEQ/L Anion Gap 8 MEQ/L Estimat Glomerular Filtration Rate 90 ML/MIN Vitals/IOs Vital Signs Date Time Temp Pulse Resp B/P (MAP) Pulse Ox O2 Delivery O2 Flow Rate FiO2 12/03/17 06:15 98.9 82 17 114/56 (75) 96 11/30/17 18:27 Room Air Assessment & Plan Problem List: (1) Schizoaffective disorder, bipolar type ICD Codes: F25.0 - Schizoaffective disorder, bipolar type Assessment & Plan Continue current tx plan.Estimated LOS: days Justification for Cont. Inpt. impairments in reality testing Request HC Surrog/Guard Advoc?: Yes Nely Triana MD Dec 03, 2017 12:11
[2017-12-03 18:01] VITALS: BP 120/59; PULSE 83; RESP 17; TEMP 98.7; O2SAT 96
[2017-12-03] MEDS: ZOLPIDEM TARTRATE 5 MG TAB PO PRN (23:00)
[2017-12-04] MEDS: LORazepam 1 MG TAB PO PRN ×2 (03:37→20:12)
[2017-12-04] MEDS: RESP: ALBUTEROL 2.5 MG/IPRATROPIUM 0.5 MG NEB (SCH) NEB ×4 (04:00→21:14)
[2017-12-04 06:20] VITALS: BP 127/65; PULSE 84; RESP 18; TEMP 97.2; O2SAT 97
--- NOTE | 2017-12-04 07:51 | HHI.PR ---
Subjective Remarks In the chair, says she feels better. No wheezing, no sob. Denies chest pain or sob. Denies fever or chills. no cough. Objective Vitals Vital Signs Date Time Temp Pulse Resp B/P (MAP) Pulse Ox O2 Delivery O2 Flow Rate FiO2 12/04/17 06:20 97.2 84 18 127/65 (85) 97 12/03/17 18:01 98.7 83 17 120/59 (79) 96 Result Diagram: 12/03/17 0940 12/03/17 0940 Imaging Last Impressions Chest X-Ray 12/01/17 0000 Signed Impressions: Service Date/Time: November 21:25 - CONCLUSION: Slight left base atelectasis. Chente Patel MD Objective Remarks GENERAL: Sitting up at table eating lunch. She is alert. SKIN: Warm and dry. HEAD: Normocephalic. EYES: No scleral icterus. No injection or drainage. NECK: Supple, trachea midline. No JVD. No lymphadenopathy. Patient with raspy voice, however improved from yesterday. CARDIOVASCULAR: Regular rate and rhythm without murmurs, gallops, or rubs. RESPIRATORY: Breath sounds equal bilaterally. No accessory muscle use. GASTROINTESTINAL: Abdomen soft, non-tender, nondistended. MUSCULOSKELETAL: No cyanosis, or edema. BACK: Nontender without obvious deformity. No CVA tenderness. A/P Assessment and Plan Recent diagnosis of bronchitis. Hoarseness to follow up as OP with ENT for further eval Discontinue prednisone taper as this has likely worsened her psychosis. Chest x-ray reviewed with atelectasis. IS Finished azithromycin. Albuterol nebs as needed. QTC within normal limits. Records have been requested from [facility]. Would consider referral to ENT as outpatient after discharge. Awaiting records from [facility]. Fever 100.6 12/02. Resolved Chest x-ray with atelectasis. Urinalysis without signs of infection. Influenza testing neg. Encouraged incentive spirometry and Acapella. Continue to monitor. Urinalysis with innumerable RBCs. Patient on her period. Schizophrenia. As per primary service. Discharge Planning We'll continue to follow. Kary Hummel MD Dec 04, 2017 07:51
[2017-12-04] MEDS: DIVALPROEX DR 500 MG TABEC PO SCH ×2 (08:07→20:12)
[2017-12-04] MEDS: risperiDONE ODT 2 MG TAB PO SCH ×2 (08:07→20:12)
--- NOTE | 2017-12-04 13:49 | HHI.PYPN ---
Subjective Chief Complaint: Psychosis Remarks Pt seen and discussed with staff. She has been compliant with medications and has been participating in therapeutic activities. Thought process is more organized and delusions have not been expressed today. She reports that sleep was better last night and thoughts feel more clear. No SI/HI Mental Status Examination Appearance: Disheveled Consciousness: Alert Orientation: Person, Place (at least) Motor Activity: Normal gait, Other (no motor abnormalities noted) Speech: Other (somewhat rambling but less raspy today) Language: Adequate Fund of Knowledge: Poor Attention and Concentration: Adequate Memory: Impaired Mood: Appropriate Affect: Euthymic Thought Process & Associations: Tangential Thought Content: Delusional Hallucination Type: None Delusion Type: Paranoid (decreased) Suicidal Ideation: No Suicidal Plan: No Suicidal Intention: No Homicidal Ideation: No Homicidal Plan: No Homicidal Intention: No Insight: Fair Judgment: Impulsive Results Vitals/IOs Vital Signs Date Time Temp Pulse Resp B/P (MAP) Pulse Ox O2 Delivery O2 Flow Rate FiO2 12/04/17 06:20 97.2 84 18 127/65 (85) 97 11/30/17 18:27 Room Air Assessment & Plan Problem List: (1) Schizoaffective disorder, bipolar type ICD Codes: F25.0 - Schizoaffective disorder, bipolar type Assessment & Plan Pt improving. Continue current tx plan Estimated LOS: days Justification for Cont. Inpt. risk of decompensaton Request HC Surrog/Guard Advoc?: Yes Nely Triana MD Dec 04, 2017 13:49
[2017-12-04 15:28] VITALS: BP 124/67; PULSE 81; RESP 18; TEMP 98.8; O2SAT 98
[2017-12-04] MEDS: ZOLPIDEM TARTRATE 5 MG TAB PO PRN (20:12)
[2017-12-05] MEDS: LORazepam 1 MG TAB PO PRN ×2 (03:16→22:47)
[2017-12-05] MEDS: ACETAMINOPHEN 325 MG TAB PO PRN ×2 (03:16→15:01)
[2017-12-05] MEDS: RESP: ALBUTEROL 2.5 MG/IPRATROPIUM 0.5 MG NEB (SCH) NEB ×3 (05:18→21:10)
[2017-12-05 05:49] VITALS: BP 130/64; PULSE 83; RESP 17; TEMP 98.9; O2SAT 97
[2017-12-05] MEDS: DIVALPROEX DR 500 MG TABEC PO SCH ×2 (08:59→20:50)
[2017-12-05] MEDS: risperiDONE ODT 2 MG TAB PO SCH (08:59)
--- NOTE | 2017-12-05 11:56 | HHI.PYPN ---
Subjective Chief Complaint: Psychosis Remarks Patient seen and examined with nurse. Chart reviewed. Case discussed with nursing staff who reports that the patient has been no significant behavioral problem but did tell nursing staff this morning that she was and that her water just broke. bHCG was negative on admission. On my exam, patient is calm and cooperative with interview. She continues to articulate delusions of but is not distressed by these delusions. She denies any SI/HI or AVH. Mood is stable. Denies side effects from medications. No other physical complaints. She would like to return to [facility]. She is receptive to HARRINGTON antipsychotic. Spoke with patient's aunt and HCS, Ms. Estrella. She confirms that delusions of are chronic and likely fixed. We review R/B/A for H[place]INGTON options given patient's improvement on oral Risperdal. We settle on initiation of Invega Sustenna. I also discuss elevated ammonia and plan to initiate Carnitor to manage this. We discuss plan for return to [facility] in the next day or two. She thanks me for the call. Review of Systems ROS Limitations: Psychotic, Poor Historian Except as stated in HPI: all other systems reviewed are Neg Mental Status Examination Appearance: Other (fair grooming) Consciousness: Alert Orientation: Person, Place (at least) Motor Activity: Normal gait, Other (no abnormal motor movements noted) Speech: Other (slightly raspy) Language: Adequate Fund of Knowledge: Poor Attention and Concentration: Adequate Memory: Impaired Mood: Appropriate Affect: Appropriate Thought Process & Associations: Circumstantial Thought Content: Delusional Hallucination Type: None Delusion Type: Paranoid (delusion of , chronic, likely fixed) Suicidal Ideation: No Suicidal Plan: No Suicidal Intention: No Homicidal Ideation: No Homicidal Plan: No Homicidal Intention: No Insight: Poor (likely chronic condition) Judgment: Poor (likely chronic condition) Mental Status Exam Remarks No evidence of hyperammonemic encephalopathy. Results Labs Labs reviewed. Depakote level within the therapeutic range although this was obtained post dose. Ammonia level is elevated without signs or symptoms of hyperammonemic encephalopathy. Vitals/IOs Vital Signs Date Time Temp Pulse Resp B/P (MAP) Pulse Ox O2 Delivery O2 Flow Rate FiO2 12/05/17 05:49 98.9 83 17 130/64 (86) 97 Assessment & Plan Problem List: (1) Schizoaffective disorder, bipolar type ICD Codes: F25.0 - Schizoaffective disorder, bipolar type Assessment & Plan Initiate Invega Sustenna 234 mg IM today. Plan for's with discontinuation of oral Risperdal as oral supplementation is not required with Invega Sustenna. Plan for booster dose of Invega Sustenna in 4-7 days as recommended. Continue Depakote as ordered. Check a pre-dose Depakote level tomorrow morning. Initiate Carnitor for management of possible Depakote induced hyperammonemia with plans to check a follow-up ammonia level on an outpatient basis. Continue to monitor on the inpatient unit. Continue other medications include as ordered. Justification for Cont. Inpt. Med changes. Discharge Planning Anticipate discharge back to [facility] in the next day or two. Request HC Surrog/Guard Advoc?: Yes Demarcus Allen MD Dec 05, 2017 11:56
--- NOTE | 2017-12-05 14:11 | HHI.PR ---
Subjective Remarks Follow-up visit for vocal hoarseness, bronchitis, and schizophrenia. Patient seen resting comfortably in her bed in no acute distress. She denies any shortness of breath, cough, fevers, chills, nausea, vomiting, diarrhea or headaches. Hoarseness continues and patient does report that she has a history of smoking although has not smoked since she was admitted to inpatient psychiatry. She tells me that she has plans to quit this time. Objective Vitals Vital Signs Date Time Temp Pulse Resp B/P (MAP) Pulse Ox O2 Delivery O2 Flow Rate FiO2 12/05/17 05:49 98.9 83 17 130/64 (86) 97 12/04/17 15:28 98.8 81 18 124/67 (86) 98 Result Diagram: 12/03/17 0940 12/03/17 0940 Imaging Last Impressions Chest X-Ray 12/01/17 0000 Signed Impressions: Service Date/Time: November 21:25 - CONCLUSION: Slight left base atelectasis. Chente Patel MD Objective Remarks GENERAL: Well-developed female in no acute distress. SKIN: Warm and dry. HEAD: Normocephalic. EYES: No scleral icterus. No injection or drainage. NECK: Supple, trachea midline. No JVD. No lymphadenopathy. Patient with raspy/ hoarse voice. CARDIOVASCULAR: Regular rate and rhythm without murmurs, gallops, or rubs. RESPIRATORY: Breath sounds equal bilaterally. No accessory muscle use. GASTROINTESTINAL: Abdomen soft, non-tender, nondistended. MUSCULOSKELETAL: No cyanosis, or edema. NEUROLOGIC: Awake alert and oriented, moves all extremities, speech is clear , no facial droop, ambulating without difficulties. A/P Assessment and Plan 37-year-old female admitted to inpatient psychiatry for treatment of schizophrenia. Recently treated for bronchitis, history of tobacco abuse. Schizophrenia -Treatment per psychiatry Recent bronchitis Vocal hoarseness - Chest x-ray reviewed with atelectasis. - Finished azithromycin. - Continue Albuterol nebs along with incentive spirometer and acapella. - Would consider referral to ENT as outpatient after discharge, this was discussed with patient and she verbalized understanding. - Awaiting [facility] records. Fever 100.6 12/02. Resolved - Chest x-ray with atelectasis. Urinalysis without signs of infection. - Influenza testing neg. - Encouraged incentive spirometry and Acapella. Continue to monitor. - Urinalysis with innumerable RBCs. Patient on her period. DVT prophylaxis-ambulation Gopal Farnsworth Dec 05, 2017 14:11
[2017-12-05] MEDS ORDERED: PALIPERIDONE PALMITATE 234 MG/1.5 ML SYRINGE IM ONE (15:45)
[2017-12-05 16:57] VITALS: BP 124/81; PULSE 85; RESP 20; TEMP 98; O2SAT 97
[2017-12-05] MEDS: risperiDONE ODT 3 MG TAB PO SCH (20:50)
[2017-12-05] MEDS: ZOLPIDEM TARTRATE 5 MG TAB PO PRN (20:52)
[2017-12-05] MEDS: levOCARNitine 10% ORAL SOLN 118 ML BTL PO SCH (20:52)
[2017-12-06] MEDS: ACETAMINOPHEN 325 MG TAB PO PRN (03:55)
[2017-12-06 05:33] VITALS: BP 129/74; PULSE 88; RESP 18; TEMP 97.6; O2SAT 99
[2017-12-06] MEDS: DIVALPROEX DR 500 MG TABEC PO SCH (09:15)
[2017-12-06] MEDS: risperiDONE ODT 3 MG TAB PO SCH (09:15)
[2017-12-06] MEDS: LORazepam 1 MG TAB PO PRN (09:15)
[2017-12-06] MEDS: levOCARNitine 10% ORAL SOLN 118 ML BTL PO SCH (09:15)
--- NOTE | 2017-12-06 12:06 | HHI.PR ---
Subjective Remarks Follow-up visit for vocal hoarseness, bronchitis, and schizophrenia. Patient seen and examined. Patient reports she has had hoarseness for many years. She was previously seen by an ENT in the distant past. She denies any complaints at this time. No fever or chills. No cough or dyspnea. No chest pain. No difficulty swallowing. Objective Vitals Vital Signs Date Time Temp Pulse Resp B/P (MAP) Pulse Ox O2 Delivery O2 Flow Rate FiO2 12/06/17 05:33 97.6 88 18 129/74 (92) 99 12/05/17 16:57 98.0 85 20 124/81 (95) 97 Result Diagram: 12/03/17 0940 12/03/17 0940 Imaging Last Impressions Chest X-Ray 12/01/17 0000 Signed Impressions: Service Date/Time: , December 01, 2017 21:25 - CONCLUSION: Slight left base atelectasis. Chente Patel MD Objective Remarks GENERAL: Well-nourished, well-developed female patient in [facility]. Appears much older than stated age. SKIN: Warm and dry. No rash. HEAD: Normocephalic. Atraumatic. EYES: Pupils equal and round. No scleral icterus. No injection or drainage. ENT: No nasal bleeding or discharge. Mucous membranes pink and moist. Patient with audible hoarseness with speaking. NECK: Supple. Trachea midline. CARDIOVASCULAR: Regular rate and rhythm. S1, S2 noted. No murmur appreciated. RESPIRATORY: Nonlabored. Clear to auscultation. Breath sounds equal bilaterally. GASTROINTESTINAL: Abdomen soft, non-tender, nondistended. Normoactive bowel sounds x4. MUSCULOSKELETAL: No obvious deformities. Extremities without clubbing, cyanosis , or edema. NEUROLOGICAL: Awake and alert. No obvious cranial nerve deficits. Motor grossly within normal limits. 5/5 muscle strength in bilateral upper and lower extremities. Normal but hoarse speech. PSYCHIATRIC: Appropriate mood and affect; insight and judgment normal. Medications and IVs Current Medications Medications (Trade) Dose Ordered Sig/David Route Start Time Stop Time Status Last Admin (Tylenol) 650 mg Q4H PRN PO 11/30/17 18:45 12/06/17 03:55 (Milk Of Magnesia Liq) 30 ml DAILY PRN PO 11/30/17 18:45 12/01/17 04:08 (Mag-Al Plus Susp Liq) 30 ml Q6H PRN PO 11/30/17 18:45 12/05/17 22:45 (Proair Hfa Inh) 2 puff Q4H PRN INH 11/30/17 21:00 (Cogentin) 1 mg BID PRN PO 12/01/17 13:45 (Cogentin Inj) 1 mg BID PRN IM 12/01/17 13:45 (Ativan) 1 mg Q6H PRN PO 12/01/17 13:45 12/06/17 09:15 (Ativan Inj) 1 mg Q6H PRN IM 12/01/17 13:45 (Ambien) 5 mg HS PRN PO 12/01/17 21:00 12/05/17 20:52 (Depakote Dr) 500 mg BID PO 12/02/17 21:00 12/06/17 09:15 (risperDAL M-TAB) 3 mg BID PO 12/05/17 21:00 12/06/17 09:15 (Carnitor 10% Liq) 3 ml DAILY@0900,1500,2100 PO 12/05/17 21:00 12/06/17 09:15 A/P Assessment and Plan 37-year-old female admitted to inpatient psychiatry for treatment of schizophrenia. Recently treated for bronchitis, history of tobacco abuse. Schizophrenia -Treatment per psychiatry Recent bronchitis, completed treatment Vocal hoarseness, chronic per patient report - Chest x-ray with atelectasis. - Continue Albuterol nebs along with incentive spirometer and acapella. - Discussed referral to ENT as outpatient after discharge, this was discussed with patient and she verbalized understanding. - Awaiting [facility] records, still not in chart - discussed importance of smoking cessation Hyperammonemia - suspect secondary to Depakote - started on Carnitor by primary team - continue to monitor ammonia level especially if any change in mentation DVT prophylaxis - patient is ambulatory Patient cleared for discharge from hospitalist standpoint. Recommend follow up with ENT specialist as outpatient. Strongly advised on smoking cessation. Pita Love Dec 06, 2017 12:06
[2017-12-06] MEDS ORDERED: DIVA500T PO (12:28)
[2017-12-06] MEDS ORDERED: RISPM3 PO (12:28)
[2017-12-06] MEDS ORDERED: PALI156P IM (12:28)
[2017-12-06] MEDS ORDERED: LEVO10%S PO (12:28)
--- NOTE | 2017-12-06 12:28 | HHI.DS ---
Psychiatry Discharge Summary Inpatient Psychiatric care?: Yes Advance Directive: Yes Mental Health AdvanceDirective: No Health Care Proxy: No Admission Admission Date Nov 30, 2017 at 18:36 Admission Diagnosis: (1) Schizoaffective disorder, bipolar type ICD Code: F25.0 - Schizoaffective disorder, bipolar type Brief History Ms. Ricketts is a 37-year-old female with a history of schizoaffective disorder who presents under a Lam act alleging that the patient's speech is garbled and nonsensical and that she disrobed in a parking lot. Patient is a resident of [facility]. Reviewing the electronic medical record, I note the patient was psychiatrically admitted most recently here [place] [address] Andrea and was stabilized on Depakote and Haldol at that time.Patient seen and examined with nurse. Chart reviewed. Case discussed with nursing staff. Patient endorsing delusions of although she is on her menses per nursing staff. On my examination today, patient is speaking with a raspy voice ; she has reportedly had a tracheostomy in the past and may have a history of TBI. Patient is paranoid about someone named Oralia who may be a staff member at her facility. She is guarded on my exam and seems to misinterpret innocent questions as being somehow hostile or intrusive. She is fairly irritable generally. She denies AVH but appears internally stimulated. Denies SI/HI but seems unreliable to contract for safety. Denies depressive or hypomanic/manic symptoms. She does believe that she is . She insists that she has been adherent with psychotropic medications. Remainder of the psychiatric ROS is negative. No physical complaints at this time. Tobacco Use In Past 30 Days: 5 or More Cigarettes/Day Alcohol Use: 2-4 Times Per Month Hospital Course Patient was admitted to a locked, inpatient psychiatric unit. A general medical consultation was obtained, and the patient was medically cleared prior to discharge. Appropriate precautions were in place throughout patient's hospital stay. Patient was seen and examined on the unit by psychiatry and also visited by counselor. Psychotropic medications were adjusted. The patient was started on long-acting injectable Invega Sustenna. The patient had improvement in presenting psychiatric symptomatology during the course of her hospital stay. She did continue to display some delusional material, including delusions of , which by history and in presentation is suspected to be chronic and fixed. There was no evidence of any suicidality or homicidality on the inpatient unit. The patient's behavior improved with the benefit of psychopharmacologic treatment. Counselor has arranged for return to referring facility. On the day of discharge: Patient seen and examined with nurse. Chart reviewed. Case discussed with nursing staff. Case discussed in treatment team. On my examination today, the patient feels ready to return to her facility. She denies any suicidal or homicidal ideation, intent or plan on direct questioning and contracts for safety. I can elicit no depressive or hypomanic/manic symptoms. She denies any audiovisual hallucinations. I can elicit no new delusional material, and when I inquire about delusions of , the patient is able to express some doubt as to whether she is , saying "I dunno." She denies any side effects from medications. No physical complaints. Suicide and violence risk assessment on day of discharge suggest lower imminent risk, and the patient's level of function is adequate for outpatient care. The patient has maximized benefit from this inpatient psychiatric hospital stay and will be discharged back to facility today with psychiatric follow-up as arranged by counselor. Patient is also to follow-up with primary care. I counseled the patient regarding warning signs for need to return to the psychiatric emergency room as part of the general safety plan. Although Invega Mulu does not strictly require oral supplementation, I have ordered a quantity of supplemental oral Risperdal to be continued at least until her booster injection in a week as in my experience patients can display some worsening of psychotic symptoms in the absence of supplementation until the booster dose has been received. Results Blood Pressure 129 / 74 Vital Signs Date Time Temp Pulse Resp B/P (MAP) Pulse Ox O2 Delivery O2 Flow Rate FiO2 12/06/17 05:33 97.6 88 18 129/74 (92) 99 Laboratory Tests Test 12/05/17 12:02 12/06/17 05:50 Ammonia 68 MCMOL/L (11-32) Laboratory Results Test 12/01/17 07:30 12/06/17 05:50 Cholesterol Level 114 MG/DL (120-200) HDL Cholesterol 47.3 MG/DL (40.0-60.0) Hemoglobin A1c 5.3 % (4.3-6.0) LDL Cholesterol 57 MG/DL (0-99) Triglycerides Level 50 MG/DL (42-150) Valproic Acid (Depakene) Level 55 MCG/ML (50-100) Summary of Procedures None done Imaging Last Impressions Chest X-Ray 12/01/17 0000 Signed Impressions: Service Date/Time: November 21:25 - CONCLUSION: Slight left base atelectasis. Chente Patel MD Pending results at discharge: No Medications # of Antipsychotic meds at D/C: 2 Appropriate >1 Antipsych meds?: 4 Approp Antipsych med options 1 - Minimum of three failed multiple trials of monotherapy. 2 - Documented plan to taper to monotherapy due to previous use of multiple meds OR cross-taper in progress at D/C. 3 - Documentation of augmentation of Clozapine. 4 - Justification other than those listed in allowable values 1-3, document here : As noted above. Discharge Discharge Date: Dec 06, 2017 Discharge Diagnosis: (1) Schizoaffective disorder, bipolar type Diagnosis: Principal (stabilized) ICD Code: F25.0 - Schizoaffective disorder, bipolar type Pt Condition on Discharge: Stable Discharge Disposition: [facility] Discharge Instructions Diet Instructions: As Tolerated, No Restrictions Activities you can perform: Weight Bearing as Kelsie Scheduled Appointment: as per counselor's notes New Orders: AMMONIA - 1 Week New Medications: Paliperidone Palmitate Inj (Invega Sustenna Inj) 156 Mg/Ml Inj 156 MG IM Q28D for Schizophrenia, #1 VIAL 0 Refills This dose of Invega Sustenna is due by 12/12/17. Levocarnitine Liq (Carnitor Liq) 1 Gm/10 Ml Soln 3 ML PO DAILY@0900,1500,2100 for Hyperammonemia for 15 Days, ML 1 Refill Risperidone Odt (Risperdal M-Tab) 3 Mg Tab 3 MG PO BID for Mental Health for 7 Days, #14 TAB 3 Refills Take oral Risperdal until your next Invega Sustenna injection or as directed by your outpatient provider. Continued Medications: Albuterol 18 GM Inh (Ventolin Hfa 18 GM Inh) 90 Mcg/Act Aer 2 PUFF INH Q4H PRN for SHORTNESS OF BREATH, #1 INHALER [address] (Divalproex DR) 500 Mg Tabdr 500 MG PO BID for Mental Health for 15 Days, #30 TAB 1 Refill (This prescription has been renewed) Discontinued Medications: Acetaminophen-Codeine (Tylenol-Codeine #3) 300-30 mg Tab 1 TAB PO Q6HR PRN for PAIN SCALE 1 TO 10, TAB 0 Refills Aripiprazole (Abilify) 15 Mg Tab 15 MG PO DAILY, #30 TAB 0 Refills Azithromycin (Zithromax Z-Tomas) 250 Mg Dspk 250 MG PO DIRECTED for Infection, #1 DSPK 0 Refills 500 MG (2 tabs) day 1, then 1 tab days 2-5. Benztropine (Benztropine) 0.5 Mg Tab 1 MG PO BID, #60 TAB 0 Refills Chlorpromazine (Chlorpromazine) 200 Mg Tab 100 MG PO Q6H PRN for NAUSEA OR VOMITING, TAB 0 Refills Guanfacine (Guanfacine) 1 Mg Tab 1 MG PO DAILY for Blood Pressure Management, #30 TAB 0 Refills Do not crush, chew or divide tablet. Take with a meal. Ibuprofen (Ibuprofen) 800 Mg Tab 800 MG PO TID for Arthritis Pain, TAB 0 Refills Lorazepam (Lorazepam) 1 Mg Tab 1 MG PO TID, TAB 0 Refills Naproxen (Naproxen) 500 Mg Tab 500 MG PO BID, #60 TAB 0 Refills Olanzapine (Olanzapine) 20 Mg Tab 20 MG PO HS, #30 TAB 0 Refills Prednisone (Prednisone) 20 Mg Tab 40 MG PO DAILY, #10 TAB 0 Refills Take 40 mg (2 tablets) daily for 5 days Quetiapine (Quetiapine) 100 Mg Tab 100 MG PO DAILY, #30 TAB 0 Refills Temazepam (Temazepam) 30 Mg Cap 30 MG PO HS, #30 CAP 0 Refills Trazodone (Trazodone) 50 Mg Tab 50 MG PO HS for Control Depression, #30 TAB 0 Refills Discharge Time > 30 minutes Mental Status Examination Appearance: Appropriate Consciousness: Alert Orientation: x4 Motor Activity: Normal gait, Other (no hand tremor, no dystonia, no dyskinesia , no other motor abnormalities noted.) Speech: Other (somewhat raspy but otherwise unremarkable) Language: Adequate Fund of Knowledge: Adequate (fair) Attention and Concentration: Adequate Memory: Unremarkable Mood: Appropriate Affect: Appropriate Thought Process & Associations: Circumstantial Thought Content: Other (generally appropriate, some fixed delusions as noted above) Hallucination Type: None Delusion Type: Other (does express some uncertainty regarding delusion of . No new delusional material.) Suicidal Ideation: No Suicidal Plan: No Suicidal Intention: No Homicidal Ideation: No Homicidal Plan: No Homicidal Intention: No Insight: Poor (chronic condition) Judgment: Poor (chronic condition) Discharge/Advance Care Plan Health Problems: (1) Schizoaffective disorder, bipolar type Goals to promote your health * To prevent worsening of your condition and complications * To maintain your health at the optimal level Directions to meet your goals Take your medications as prescribed Follow your dietary instruction Follow activity as directed Keep your appointments as scheduled Take your immunizations and boosters as scheduled If your symptoms worsen call your PCP, if no PCP go to Urgent Care Center or Emergency Room For 30/05 questions related to your inpatient stay or results of tests pending at discharge, please contact Dr. Demarcus Allen at Smoking is Dangerous to Your Health. Avoid second hand smoking Demarcus Allen MD Dec 06, 2017 12:28
== END 2017-12-06 15:10 | DRG 885 ==
LOC: NEPD 14:27 → NEDA 18:36 → H270 21:05
PROVIDERS: ADMIT Psychiatry & Neurology Psychiatry; ATTEND Psychiatry & Neurology Psychiatry
DX: F25.0 Schizoaffective disorder, bipolar type (principal); E72.20 Disorder of urea cycle metabolism, unspecified; J98.11 Atelectasis; I10 Essential (primary) hypertension; J40 Bronchitis, not specified as acute or chronic; R32 Unspecified urinary incontinence; F17.200 Nicotine dependence, unspecified, uncomplicated; F32.9 Major depressive disorder, single episode, unspecified; R49.0 Dysphonia; Z87.820 Personal history of traumatic brain injury
CPT/HCPCS: 71046; 80048; 80053; 80061; 80164; 80307; 81001; 82140; 83036; 84443; 84703; 85025; 93005; 94150; 94640; 94664; 94667; 94668; J2426